=== PATIENT | female | born 1995 | race African-American/Black ===

== ENCOUNTER 2017-12-24 10:42 | Emergency (ER) | payer OTHER ==
--- NOTE | 2017-12-24 11:10 | ED Physician Chart ---
ED Chief Complaint/HPI - Patient Information Date Seen:: 12/24/17 Time Seen:: 11:00 Chief Complaint:: abdominal pain History of Present Illness:: one week illness with vomitting last sunday ate cereal today no prior Allergies:: Allergies Allergy/AdvReac Type Severity Reaction Status Date / Time No Known Allergies Allergy Verified 12/24/17 10:44 Vitals:: Vital Signs - 8 hr 12/24/17 10:44 Temp 98.2 F HR 84 RR 16 BP 116/66 O2 Sat % 99 Historian:: Patient Review:: Nurse's Note Reviewed ED Review of Systems - Review of Systems General/Constitutional: No fever Skin: No skin lesions Head: No headache Eyes: No loss of vision ENT: No earache Neck: No neck pain Cardio Vascular: No chest pain Pulmonary: No SOB GI: Vomiting G/U: No nacturia [place] M[place]: No abnormal vaginal bleed Musculoskeletal: No bone or joint pain Endocrine: No polyuria Psychiatric: No homicidal ideation Hematopoietic: No bruising Allergic/Immuno: No urticaria Neurological: No syncope ED Past Medical History - Past Medical History Obtainable: Yes Past Medical History: No significant medical hx Family History: None Social History: No Drug Use Surgical History: None Psychiatricy History: None Family Medical History - Family Member Mother Living Status: Still Living ED Physical Exam - Physical Examination General/Constitutional: Well-developed, well-nourished, Alert, No distress, Non- toxic appearing Head: Atraumatic Eyes: Lids, conjuctiva normal Skin: No rash ENMT: External ears, nose nl Neck: Nontender Respiratory: Nl effort/Exclusion Cardio Vascular: RRR GI: No tenderness/rebounding/guarding, No organomegaly, No hernia, Normal BS's, Nondistended, No mass/bruits, No McBurney tenderness : No CVA tenderness Extremities: Full ROM Neuro/Psych: Alert/oriented Misc: Normal back ED Labs/Radiology/EKG Results - Lab Results Results: all lab is negitive ED Assessment - Assessment General Assessment: non surgical abdomen without rebound tenderness pertoneal signs ED Septic Shock - . Is Septic Shock (SBP<90, OR Lactate>4 mmol\L) present?: No - <6hrs of presentation: Vital Signs: Vital Signs - 8 hr 12/24/17 10:44 Temp 98.2 F HR 84 RR 16 BP 116/66 O2 Sat % 99 ED Reassessment (Disposition) - Reassessment Reassessment Condition:: Unchanged - Aftercare/Follow up Instructions Notes:: clear liquids increase pain vomiting return to er avoid as motrin latasha mora may try tagamet or zantac - Patient Disposition Condition at Disposition:: Stable, Unchanged ED Discharge Plan - Patient Disposition Admit/Discharge/Transfer: PT DISCHARGED HOME Condition at Disposition: Stable Instructions: Abdominal Pain, Women
[2017-12-24 11:24] LABS: % BASOPHILS 0.7 % (0.0-2.0); % EOSINOPHILS 0.9 % (0.0-5.0); % LYMPHOCYTES 42.5 % (20.0-50.0); % MONOCYTES 8.6 % (2.0-10.0); % NEUTROPHILS 47.3 % (40.0-80.0); HEMATOCRIT 42.4 % (41.0-60); HEMOGLOBIN 14.2 gm/dL (12-16); MEAN CELL VOLUME 89.4 fl (81-100); MEAN CORPUSCULAR HEMOGLOBIN 29.8 pg (27.0-31.0); MEAN CORPUSCULAR HGB CONC 33.4 pg (28.0-36.0); MEAN PLATELET VOLUME 8.5 fl; MONOCYTE ABSOLUTE 0.4 Th/cmm (0.3-1.0); NEUTROPHILE ABSOLUTE 2.4 Th/cmm (1.8-8.0); PLATELET COUNT 219 Th/cmm (150-400); RED BLOOD COUNT 4.74 Mil/cmm (3.80-5.10); RED CELL DISTRIBUTION WIDTH 12.5 % (11.5-20.0); WHITE BLOOD COUNT 4.8 Th/cmm (4.8-10.8)
[2017-12-24 11:38] LABS: ALB/GLOB RATIO 1.6 (1.0-1.8); ALBUMIN 4.5 gm/dL (3.7-5.3); BILIRUBIN,TOTAL 0.3 mg/dL (0.3-1.0); TOTAL PROTEIN,SERUM 7.4 gm/dL (6.0-8.3)
[2017-12-24 11:39] LABS: BILIRUBIN,DIRECT 0.06 mg/dL (0.0-0.2)
[2017-12-24 12:02] LABS: URINE MICROSCOPIC INDICATED? YES; URINE SOURCE CLEAN C
[2017-12-24 12:06] LABS: URINE BILIRUBIN NEGATIVE (NEGATIVE); URINE BLOOD NEGATIVE (NEGATIVE); URINE GLUCOSE (UA) NEGATIVE (NEGATIVE); URINE KETONE NEGATIVE (NEGATIVE); URINE LEUKOCYTE ESTERASE TRACE (NEGATIVE); URINE NITRATE NEGATIVE (NEGATIVE); URINE PH 6.5 (4.6 - 8.0); URINE PROTEIN NEGATIVE (NEGATIVE); URINE UROBILINOGEN 0.2 E.U./dL (0.2 - 1.0)
[2017-12-24 12:10] LABS: URINE CLARITY CLEAR (CLEAR); URINE COLOR YELLOW
[2017-12-24 12:12] LABS: URINE RBC 0-2 /hpf (0-5)
[2017-12-24 12:13] LABS: URINE BACTERIA FEW /hpf (NONE SEEN); URINE EPITHELIAL CELLS MODERATE /lpf (FEW)
== END 2017-12-24 13:37 | disposition home or self-care (01) ==
LOC: ER 10:42
DX: R10.9 Unspecified abdominal pain (principal); R11.10 Vomiting, unspecified
CPT/HCPCS: 36415-UA; 80076-TC; 81001-TC; 81025-TC; 83690-TC; 85025-TC; Z7502